=== PATIENT | female | born 1950 | race Two or more races ===

== ENCOUNTER → 2019-09-13 | Outpatient (CLI) | payer MEDICARE ==
[2014-03-25 15:14] VITALS: BP 126/62
[~2019-09-13] MED LIST: AMLO10TA8 PO; ATOR20TA58 PO; BYSTOLIC20 MG PO; CLON0.3T PO; ESCITALOPRAM OX10 MG PO; FOLI1TAB16 PO; FURO40TA4 PO; INSU100V13 SQ; INSU100V31 SQ; LIRA0.6P2 SQ; LISI-130 PO; METH2.5T PO
--- NOTE | 2019-09-13 10:15 | RAD ---
EXAM: Left lower extremity venous reflux. HISTORY: Left lower extremity venous insufficiency. TECHNIQUE: Sonographic imaging of the left lower extremity veins was performed. COMPARISON: None. FINDINGS: The left saphenofemoral junction caliber is 8.2 mm with no identifiable reflux. The proximal left greater saphenous vein caliber is 2.6 mm with no identifiable reflux. The left lesser saphenous vein within the thigh measures 2.5 mm without identifiable reflux. The left lesser saphenous vein within the proximal calf measures 2.8 mm in caliber with no identifiable reflux. IMPRESSION: Left greater and lesser saphenous vein caliber measurements described above. No saphenous vein reflux is seen. Electronically signed by: Yeimi Hernandez MD (09/13/2019 10:12 AM) [id number]
== END ==
LOC: US 12:30
PROVIDERS: ATTEND Internal Medicine
DX: I87.2 Venous insufficiency (chronic) (peripheral) (principal); R10.12 Left upper quadrant pain
CPT/HCPCS: 93970